=== PATIENT | female | born 1955 | race Caucasian/White ===

== ENCOUNTER → 2017-01-02 | Outpatient (CLI) | payer MEDICARE ==
[~2017-01-02] MED LIST: BISOPROLOL-HCT1 EACH PO; CELEXA40 MG PO; DYAZIDE, MA1 CAPSULE PO; FUROSEMIDE20 MG PO; LAMICTAL100 MG PO; LISINOPRIL20 MG PO; LO-DOSE ASPIRIN81 M1 PO; MS CONTIN,ORAMO30 MG PO; OXYCODONE-APAP1 EAC6 PO; SKELAXIN800 MG PO; XANAX0.25 MG PO
== END | disposition home or self-care (01) ==
LOC: CDC 13:59
DX: I49.9 Cardiac arrhythmia, unspecified (principal)
CPT/HCPCS: 93000